=== PATIENT | female | born 1960 | race Asian ===

== ENCOUNTER 2017-08-21 16:04 | Inpatient (IN) | payer OTHER ==
[~2017-08-21] VITALS: Ht 160 cm; Wt 62.1 kg
[2017-08-21 16:07] VITALS: BP 144/115
--- NOTE | 2017-08-21 16:10 | NUR ---
56/F BIBA FROM [facility] FOR CHEST PAIN AND SOB AFTER HYPERVENTILIATING. AWAKE AND AELRT ON ARRIVAL. PT APPEARS ANXIOUS AND SHAKING. AMBULATORY WITH ASSITANCE WITH UNSTABLE GAIT. PT TACHYCARDIA ON MONITOR. DR. VARGAS AT BEDSIDE. EKG AT BEDSIDE. 20G NOTED TO LAC. MEDS REPORTED GIVEN ARE ASPIRIN 325MG PO AND NITRO. BLOOD GLUCOSE 131. HX DIABETES TYPE 1.
--- NOTE | 2017-08-21 16:15 | NUR ---
PT AMB TO RESTROOM WITH ASSISTANCE FOR URINE SAMPLE.
[2017-08-21] MEDS ORDERED: ASPIRIN 81 MG TAB.CHEW PO ONE (16:25)
[2017-08-21] MEDS ORDERED: DIAZEPAM PFS 10 MG/2 ML SYR IVP ONE (16:25)
[2017-08-21] MEDS ORDERED: ONDANSETRON 4 MG/2 ML VIAL IVP ONE (16:25)
[2017-08-21] MEDS ORDERED: FAMOTIDINE 20 MG/2 ML VIAL IVP ONE (16:25)
--- NOTE | 2017-08-21 16:32 | NUR ---
LAB AT BEDSIDE.
--- NOTE | 2017-08-21 16:36 | NUR ---
XR AT BEDSIDE.
[2017-08-21 16:47] LABS: BASOPHILS # (AUTO) 0.2 K/uL (0.00-0.22); EOSINOPHILS # (AUTO) 0.2 K/uL (0-0.4); HEMOGLOBIN 13.9 g/dL (12.0-16.0); LYMPHOCYTES # (AUTO) 1.5 K/uL (2.5-16.5); MEAN CORPUSCULAR HEMOGLOBIN 30 pg (27-31); MEAN CORPUSCULAR HGB CONC 33 g/dL (33-37); MEAN CORPUSCULAR VOLUME 90 fL (80-94); MONOCYTES # (AUTO) 0.3 K/uL (0.8-1.0); NEUTROPHILS # (AUTO) 3.7 K/uL (1.8-7.7); PLATELET COUNT (AUTO) 300 K/uL (140-450); RED BLOOD CELL COUNT(AUTO) 4.64 MIL/uL (4.20-5.40); RED CELL DISTRIBUTION WIDTH 11.9 % (11.6-13.7); WHITE BLOOD COUNT (AUTO) 5.9 K/uL (4.8-10.8)
[2017-08-21 16:49] LABS: APPEARANCE,URINE CLEAR (CLEAR); BILIRUBIN,URINE NEGATIVE (NEGATIVE); BLOOD, URINE NEGATIVE (NEGATIVE); COLOR,URINE YELLOW (YELLOW); LEUKOCYTE ESTERASE ,URINE NEGATIVE (NEGATIVE); NITRITE, URINE NEGATIVE (NEGATIVE); PH,URINE 7.5 (5.0-9.0); UGLUCOSE NEGATIVE (NEGATIVE)
[2017-08-21 17:10] LABS: ANION GAP 14.4 (8-16); CREATININE 0.8 mg/dL (0.6-1.3); POTASSIUM 3.4 mmol/L (3.5-5.1)
[2017-08-21 17:11] LABS: PROTHROMBIN TIME 10.2 secs (10.8-13.4)
[2017-08-21 17:15] LABS: ALBUMIN 4.7 g/dL (3.4-5.0); TOTAL BILIRUBIN 0.5 mg/dL (0.0-1.0)
[2017-08-21 17:26] LABS: D-DIMER < 100 ng/ml (0-400)
--- NOTE | 2017-08-21 18:03 | NUR ---
NIDA MOONEY AT BEDSIDE.
[2017-08-21] MEDS ORDERED: ONDANSETRON 4 MG/2 ML VIAL IVP PRN ×2 (18:05)
[2017-08-21] MEDS ORDERED: MORPHINE SULFATE 2 MG/ML SYR IVP PRN ×2 (18:05)
[2017-08-21] MEDS ORDERED: INSULIN LISPRO SLIDING SCALE 100 UNITS/ML VIAL SUBQ PRN (18:05)
[2017-08-21] MEDS ORDERED: ACETAMINOPHEN 325 MG TAB PO PRN ×2 (18:05)
[2017-08-21] MEDS ORDERED: POTASSIUM CHLORIDE 10 MEQ TABER PO ONE (18:25)
[2017-08-21] MEDS ORDERED: NAPH15SO OP (18:43)
[2017-08-21] MEDS ORDERED: DEXT1DRO4 OP (18:43)
[2017-08-21] MEDS ORDERED: LOTC TP (18:43)
[2017-08-21] MEDS ORDERED: IBUP-2213 PO (18:43)
[2017-08-21] MEDS ORDERED: OMEG-36 PO (18:43)
[2017-08-21] MEDS ORDERED: ALEN70TA52 PO (18:43)
[2017-08-21] MEDS ORDERED: METF500T PO (18:43)
[2017-08-21] MEDS ORDERED: ERGO500028 PO (18:43)
[2017-08-21] MEDS ORDERED: NAPR500T1 PO (18:43)
[2017-08-21] MEDS ORDERED: LID5T TP (18:43)
[2017-08-21] MEDS ORDERED: SYN.075 PO (18:43)
[2017-08-21] MEDS ORDERED: LORA10TA19 PO (18:43)
--- NOTE | 2017-08-21 19:20 | NUR ---
PT ARRIVED VIA GURNEY, AMBULATED TO BED WITH STEADY GAIT. RECEIVED REPORT AT BEDSIDE FROM ER NURSE. PT IS A/OX4, ON ROOM AIR. PT HAS A 20G LEFT AC IV THAT WAS PUT IN PLACE BY EMS, IV INTACT/ASYMPTOMATIC, SALINE FLUSHED. SKIN INTACT. SAFETY PRECAUTIONS IN PLACE. UPDATED BOARD. DISCUSSED PLAN OF CARE WITH PT, PT VERBALIZED UNDERSTANDING. VITAL SIGNS WITHIN NORMAL LIMITS. PT IN STABLE CONDITION, NO SIGNS OF DISTRESS NOTED. BED IN LOW POSITION, CALL LIGHT WITHIN REACH. WILL CONTINUE TO MONITOR.
[2017-08-21 21:00] VITALS: BP 144/82
[2017-08-21] MEDS: BLOOD GLUCOSE MONITORING 1 DEV DEV FS SCH (21:13)
[2017-08-22] VITALS: BP 111/67
[2017-08-22 04:00] VITALS: BP 103/63
[2017-08-22] MEDS: BLOOD GLUCOSE MONITORING 1 DEV DEV FS SCH ×4 (06:46→21:02)
--- NOTE | 2017-08-22 07:15 | NUR ---
ENDORSED PT TO DAY SHIFT NURSE FOR CONTINUITY OF CARE. PT IN STABLE CONDITION.
--- NOTE | 2017-08-22 07:20 | NUR ---
RECEIVED REPORT FROM SHEEP BONER RN. PATIENT IS AAOX4, DENIES ANY CHEST PAIN AT THIS TIME. NO SIGNS AND SYMPTOMS OF ACUTE DISTRESS NOTED AT THIS TIME. PATIENT HAS IV TO LEFT AC 20G. SITE IS CLEAN, DRY, PATENT, AND INTACT. DISCUSSED PLAN OF CARE WITH PATIENT SHE VERBALIZED UNDERSTANDING. BED IN LOWEST POSITION, SIDE RAILS UP X2, CALL LIGHT PLACED WITHIN REACH. WILL CONTINUE TO MONITOR.
[2017-08-22 07:36] LABS: BASOPHILS # (AUTO) 0.1 K/uL (0.00-0.22); BASOPHILS % (AUTO) 1.2 % (0.0-2.0); EOSINOPHILS # (AUTO) 0.2 K/uL (0-0.4); EOSINOPHILS % (AUTO) 4.1 % (0.0-4.0); HEMATOCRIT 38.6 % (36-48); HEMOGLOBIN 13.1 g/dL (12.0-16.0); LYMPHOCYTES # (AUTO) 1.4 K/uL (2.5-16.5); LYMPHOCYTES % (AUTO) 26.8 % (20.5-51.1); MEAN CORPUSCULAR HEMOGLOBIN 31 pg (27-31); MEAN CORPUSCULAR HGB CONC 34 g/dL (33-37); MEAN CORPUSCULAR VOLUME 91 fL (80-94); MONOCYTES # (AUTO) 0.4 K/uL (0.8-1.0); MONOCYTES % (AUTO) 7.6 % (1.7-9.3); NEUTROPHILS # (AUTO) 3.1 K/uL (1.8-7.7); NEUTROPHILS % (AUTO) 60.3 % (42.2-75.2); PLATELET COUNT (AUTO) 273 K/uL (140-450); RED BLOOD CELL COUNT(AUTO) 4.27 MIL/uL (4.20-5.40); RED CELL DISTRIBUTION WIDTH 11.8 % (11.6-13.7); WHITE BLOOD COUNT (AUTO) 5.2 K/uL (4.8-10.8)
[2017-08-22 08:00] VITALS: BP 114/68
[2017-08-22 08:49] LABS: ALBUMIN 3.5 g/dL (3.4-5.0); ANION GAP 11.3 (8-16); CARBON DIOXIDE 27.6 mmol/L (21-32); CREATININE 0.8 mg/dL (0.6-1.3); POTASSIUM 3.9 mmol/L (3.5-5.1); TOTAL BILIRUBIN 0.4 mg/dL (0.0-1.0)
[2017-08-22 09:00] LABS: CREATINE KINASE MB 0.3 ng/mL (0-3.6)
[2017-08-22] MEDS ORDERED: ASPIRIN 81 MG TAB.CHEW PO SCH (09:00)
--- NOTE | 2017-08-22 09:10 | NUR ---
DR RADFORD AT THE BEDSIDE TALKING TO THE PATIENT. STATED THAT HE WILL ORDER A TSH, AND HAVE DR. CARTY COME CONSULT WITH THE PATIENT. WILL CONTINUE TO MONITOR.
--- NOTE | 2017-08-22 09:19 | NUR ---
PATIENT HAS BEEN SCREENED AND CATEGORIZED MODERATE NUTRITION RISK. PATIENT WILL BE SEEN WITHIN 3-5 DAYS OF ADMISSION. 08/24/17-08/26/[address]
[2017-08-22] MEDS: ASPIRIN 81 MG TAB.CHEW PO SCH (09:35)
[2017-08-22] MEDS ORDERED: LORazepam 0.5 MG TAB PO PRN (09:40)
[2017-08-22] MEDS: ENOXAPARIN 40 MG/0.4 ML SYR SUBQ SCH (09:40)
--- NOTE | 2017-08-22 10:21 | NUR ---
FAXED INITIAL REVIEW TO [facility] [phone] PHONE MAGNUS [phone]
[2017-08-22 12:00] VITALS: BP 109/64
[2017-08-22 16:00] VITALS: BP 127/80
[2017-08-22 17:09] LABS: CREATINE KINASE MB 0.2 ng/mL (0-3.6)
--- NOTE | 2017-08-22 19:15 | NUR ---
ENDORSED PATIENT TO DOUBLE HEAD MACHINE OPERATOR RN FOR CONTINUITY OF CARE. PATIENT IN STABLE CONDITION.
--- NOTE | 2017-08-22 19:20 | NUR ---
RECEIVED PT AWAKE ON BED, DR Randall CARTY AT BEDSIDE TALKING TO PT, DR CARTY PLANS TO DO STRESS TEST TOMORROW AT 1200, PT DENIES ANY CHEST PAIN AT THIS TIME, NO SOB NOTED, CALL LIGHT WITHIN REACH.
--- NOTE | 2017-08-22 19:40 | NUR ---
PER DR Foster CARTY SHE WILL BE NPO EXCEPT MEDS AFTER BREAKFAST TOMORROW FOR STRESS TEST AT 1200, PT MADE AWARE, ALL NEEDS ATTENDED.
[2017-08-22 20:00] VITALS: BP 99/61
--- NOTE | 2017-08-22 20:30 | NUR ---
BLOOD SUGAR CHECKED WITH 120 RESULT, SNACK PROVIDED.
[2017-08-23] VITALS: BP 95/60
--- NOTE | 2017-08-23 | NUR ---
PT SLEEPING, EASILY AROUSABLE, VITAL SIGNS STABLE, DENIES ANY PAIN AND NO SOB NOTED, OFFERED SNACK BUT PT NOT HUNGRY, CONTINUE TO MONITOR CLOSELY.
[2017-08-23 04:00] VITALS: BP 101/50
--- NOTE | 2017-08-23 04:00 | NUR ---
PT SLEEPING, AROUSABLE TO TOUCH, VITAL SIGNS STABLE, FLACC-0, MONITORED CLOSELY.
--- NOTE | 2017-08-23 06:05 | NUR ---
PT AWAKE, DENIES ANY PAIN OR SOB, BLOOD SUGAR CHECKED WITH 116, INSTRUCTED NPO AFTER BREAKFAST, VERBALIZED UNDERSTANDING, MONITORED CLOSELY.
[2017-08-23] MEDS: BLOOD GLUCOSE MONITORING 1 DEV DEV FS SCH ×2 (06:45→11:41)
--- NOTE | 2017-08-23 07:20 | NUR ---
PT AWAKE, NO SIGNS OF DISTRESS, REPORT GIVEN TO IVAN ODONNELL FOR CONTINUITY OF CARE.
--- NOTE | 2017-08-23 07:21 | NUR ---
RECEIVED REPORT FROM NIGHT RN, PT AWAKE IN BED ON RA, PT DENIES PAIN, A/OX4, NO S/S OF ACUTE DISTRESS, PLAN OF CARE DISCUSSED WITH PT, PT VERBALIZED UNDERSTANDING, IV PATENT AND INTACT, SAFETY PRECAUTIONS TAKEN, CALL LIGHT WITHIN REACH WILL CONT TO [id number].
[2017-08-23 07:51] LABS: BASOPHILS # (AUTO) 0.1 K/uL (0.00-0.22); BASOPHILS % (AUTO) 1.9 % (0.0-2.0); EOSINOPHILS # (AUTO) 0.2 K/uL (0-0.4); EOSINOPHILS % (AUTO) 4.3 % (0.0-4.0); HEMATOCRIT 38.1 % (36-48); HEMOGLOBIN 12.8 g/dL (12.0-16.0); LYMPHOCYTES # (AUTO) 1.4 K/uL (2.5-16.5); LYMPHOCYTES % (AUTO) 29.8 % (20.5-51.1); MEAN CORPUSCULAR HEMOGLOBIN 31 pg (27-31); MEAN CORPUSCULAR HGB CONC 34 g/dL (33-37); MEAN CORPUSCULAR VOLUME 91 fL (80-94); MONOCYTES # (AUTO) 0.4 K/uL (0.8-1.0); MONOCYTES % (AUTO) 8.9 % (1.7-9.3); NEUTROPHILS # (AUTO) 2.6 K/uL (1.8-7.7); NEUTROPHILS % (AUTO) 55.1 % (42.2-75.2); PLATELET COUNT (AUTO) 266 K/uL (140-450); RED BLOOD CELL COUNT(AUTO) 4.18 MIL/uL (4.20-5.40); RED CELL DISTRIBUTION WIDTH 11.9 % (11.6-13.7); WHITE BLOOD COUNT (AUTO) 4.7 K/uL (4.8-10.8)
[2017-08-23 08:00] VITALS: BP 119/61
[2017-08-23] MEDS: ASPIRIN 81 MG TAB.CHEW PO SCH (08:24)
[2017-08-23] MEDS: ENOXAPARIN 40 MG/0.4 ML SYR SUBQ SCH (08:31)
--- NOTE | 2017-08-23 08:32 | NUR ---
DUE MEDICATIONS GIVEN WITH EDUCATION, PT VERBALIZED UNDERSTANDING, PT TOLERATED MEDS WELL, PT EDUCATED TO HAVE NOTHING BY MOUTH AFTER MEDS FOR STRESS TEST, IV PATENT AND INTACT, WILL CONT TO MONITOR.
[2017-08-23] MEDS ORDERED: ESCITALOPRAM 20 MG TAB PO SCH (09:00)
--- NOTE | 2017-08-23 11:02 | NUR ---
ADVISED DR FLORES THAT PT IS TOO WEAK AND IN TOO MUCH PAIN FOR STRESS TEST, WILL CONT TO MONITOR .
--- NOTE | 2017-08-23 11:13 | NUR ---
PT STATES SHE IS TOO WEAK AND HAS TOO MUCH PAIN IN KNEES TO PERFORM STRESS TEST, PT WAS ADVISED TO FOLLOW UP WITH PRIMARY DR IN ONE WEEK, PT VERBALIZED UNDERSTANDING.
[2017-08-23 11:25] VITALS: BP 119/61
[2017-08-23 11:42] VITALS: BP 124/68
--- NOTE | 2017-08-23 12:18 | NUR ---
PT AWAKE IN BED ON RA, PT DENIES PAIN, NO S/S OF ACUTE DISTRESS, PT AWAITING DISCHARGE, WILL CONT TO MONITOR.
--- NOTE | 2017-08-23 14:31 | NUR ---
CM NOTE FAXED CONCURRENT REVIEW TO [facility] [phone] PHONE MAGNUS [phone]
[2017-08-23] MEDS ORDERED: ESCI10TA PO (14:42)
[2017-08-23] MEDS ORDERED: ASPI-1677 PO (14:44)
[2017-08-23] MEDS ORDERED: ATI.5 PO (14:44)
--- NOTE | 2017-08-23 15:03 | NUR ---
PT READY FOR DISCHARGE, ALL PAPERWORK SIGNED, IV TAKEN OUT TIP INTACT, TELE BOX REMOVED, PT AMBULATE TO LOBBY WITH NO S/S OF ACUTE DISTRESS, DAUGHTER PICKING UP PT, PT IN STABLE CONDITION.
== END 2017-08-23 15:05 | disposition home or self-care (01) | DRG 203 ==
LOC: MED 16:04 → MTU 18:11
PROVIDERS: ADMIT Hospitalist; ATTEND Hospitalist
DX: M94.0 Chondrocostal junction syndrome [Tietze] (principal); I24.9 Acute ischemic heart disease, unspecified; E03.9 Hypothyroidism, unspecified; Z98.891 History of uterine scar from previous surgery; E11.9 Type 2 diabetes mellitus without complications; F41.0 Panic disorder [episodic paroxysmal anxiety]; E87.6 Hypokalemia; M81.0 Age-related osteoporosis without current pathological fracture; M17.11 Unilateral primary osteoarthritis, right knee; G89.29 Other chronic pain; M54.5 Low back pain; Z88.8 Allergy status to other drugs, medicaments and biological substances
CPT/HCPCS: 36415; 71010; 80053; 81003; 81025; 82550; 82553; 82948; 83690; 84443; 84484; 85025; 85379; 85610; 85730; 87081; 93005; 96374; 96375; 99285; J1650; J1815; J2405; J3360; J3490

== ENCOUNTER 2018-12-20 22:06 | Emergency (ER) | payer OTHER ==
[~2018-12-20] VITALS: Ht 154.9 cm; Wt 61.2 kg
[~2018-12-20 22:06] MED LIST: ALEN70TA9 PO; ASPI-1677 PO; ATI.5 PO; DEXT1DRO4 OP; ERGO500028 PO; ESCI10TA PO; IBUP-2213 PO; LID5T TP; LORA10TA19 PO; LOTC TP; METF500T PO; NAPH15SO OP; NAPR-54 PO; OMEG-36 PO; SYN.075 PO
[2018-12-20 22:17] VITALS: BP 154/93
--- NOTE | 2018-12-20 22:19 | NUR ---
PT TRIAGED AND SENT TO ER LOBBY, URINE OBTAINED AT THIS TIME.
--- NOTE | 2018-12-20 23:36 | NUR ---
pt ambulated to er bed 03
--- NOTE | 2018-12-21 00:48 | NUR ---
PT BIB SELF C/O COUGH X 1 MONTH. PT STATES COUGH IS DRY AND PERSISTENT. RR EVEN AND UNLABORED, BL BS CLEAR THROUGH OUT, PT IN NO RESPIRATORY DISTRESS. PT SITTING IN BED, AWAKE.
[2018-12-21 02:01] VITALS: BP 140/88
--- NOTE | 2018-12-21 02:01 | NUR ---
Patient discharged with v/s stable. Written and verbal after care instructions given and explained. Patient alert, oriented and verbalized understanding of instructions. Ambulatory with steady gait. All questions addressed prior to discharge. ID band removed. Patient advised to follow up with PMD. Rx of azithromycin given. Patient educated on indication of medication including possible reaction and side effects. Opportunity to ask questions provided and answered.
== END 2018-12-21 02:01 | disposition home or self-care (01) ==
LOC: MED 22:06
DX: J40 Bronchitis, not specified as acute or chronic (principal); E10.9 Type 1 diabetes mellitus without complications; Z79.82 Long term (current) use of aspirin; Z79.84 Long term (current) use of oral hypoglycemic drugs; Z79.899 Other long term (current) drug therapy
CPT/HCPCS: 71046; 81002; 87804; 99284; Q0092

== ENCOUNTER 2018-12-22 11:35 | Emergency (ER) | payer OTHER ==
[~2018-12-22] VITALS: Ht 154.9 cm; Wt 62.1 kg
[2018-12-22 12:04] VITALS: BP 126/78
--- NOTE | 2018-12-22 12:10 | NUR ---
PT SENT TO LOBBY TO WAIT FOR AVAIABLE BED.
--- NOTE | 2018-12-22 16:21 | NUR ---
PT AMBULATED TO BED 11.
--- NOTE | 2018-12-22 16:32 | NUR ---
PATIENT PRESENTS TO ED WITH requesting antitussive, seen yesterday in our er ----rx z hugo to f/u with pmd DENIES N/V/D; SKIN IS PINK/WARM/DRY; AAOX4 WITH EVEN AND STEADY GAIT; LUNGS CLEAR BL; HR EVEN AND REGULAR; PATIENT STATES PAIN OF 0/10 AT THIS TIME; VSS; PATIENT POSITIONED FOR COMFORT; HOB ELEVATED; BEDRAILS UP X2; BED DOWN. ER MD MADE AWARE OF PT STATUS.
[2018-12-22] MEDS ORDERED: MECLIZINE 25 MG TAB PO ONE (16:40)
[2018-12-22] MEDS ORDERED: cefTRIAXone 1,000 MG in LIDOCAINE 1% ***ER ONLY *** 2.1 ML IM ONE (16:40)
[2018-12-22] MEDS ORDERED: DEXAMETHASONE 10 MG/ML VIAL IM ONE (16:40)
[2018-12-22] MEDS ORDERED: hydrOXYzine HCL 25 MG TAB PO ONE (16:40)
[2018-12-22] MEDS ORDERED: FAMOTIDINE 20 MG TAB PO ONE (16:40)
[2018-12-22] MEDS ORDERED: cefTRIAXone 1,000 MG VIAL ONE (16:54)
[2018-12-22 19:05] VITALS: BP 115/69
--- NOTE | 2018-12-22 19:05 | NUR ---
Patient discharged with v/s stable. Written and verbal after care instructions given and explained. Patient alert, oriented and verbalized understanding of instructions. Ambulatory with steady gait. All questions addressed prior to discharge. ID band removed. Patient advised to follow up with PMD. Rx of PROMETHAZINE/VISTARIL/PRELONE given. Patient educated on indication of medication including possible reaction and side effects. Opportunity to ask questions provided and answered.
== END 2018-12-22 19:05 | disposition home or self-care (01) ==
LOC: MED 11:35
DX: R05 Cough (principal); K21.9 Gastro-esophageal reflux disease without esophagitis; E11.9 Type 2 diabetes mellitus without complications; F31.9 Bipolar disorder, unspecified; E03.9 Hypothyroidism, unspecified; Z79.82 Long term (current) use of aspirin; Z79.84 Long term (current) use of oral hypoglycemic drugs; Z79.1 Long term (current) use of non-steroidal anti-inflammatories (NSAID); Z79.899 Other long term (current) drug therapy
CPT/HCPCS: 96372; 99283; J0696; J1100; J2001; J8597

== ENCOUNTER 2021-07-17 10:53 | Emergency (ER) | payer OTHER ==
[~2021-07-17] VITALS: Ht 162.6 cm; Wt 59.4 kg
[~2021-07-17 10:53] MED LIST changes: -ALEN70TA9 PO; -ASPI-1677 PO; +ASPI-1749 PO; +FOS70 PO
[2021-07-17 11:09] VITALS: BP 152/92
--- NOTE | 2021-07-17 11:16 | NUR ---
PT W/C ASSISTED TO ER BED 8
--- NOTE | 2021-07-17 11:25 | NUR ---
60 y/o female from home c/o dizziness with nausea/vomiting x 2 wks s/p fall. Pt states LOC with fall 2 wks ago and scheduled for MRI but has not been completed. Pt presents fatigue, arousable to voice. Vomiting upon arrival. Equal quality manager strength, no facial asymmetry noted. Awake and dowsy. Placed on bedside monitor. Bed locked and in lowest position. VSS medhx: denies allergies: denies
--- NOTE | 2021-07-17 11:39 | NUR ---
IV 20 SANDRA STARTED ON LEFT AC.
--- NOTE | 2021-07-17 11:47 | NUR ---
SHARRI SWAB WAS DONE AND TAKEN TO THE LAB.
[2021-07-17 11:48] LABS: BASOPHILS % (AUTO) 0.4 % (0.0-2.0); EOSINOPHILS % (AUTO) 0.5 % (0.0-4.0); HEMATOCRIT 38.7 % (36-48); HEMOGLOBIN 13.2 g/dL (12.0-16.0); LYMPHOCYTES # (AUTO) 0.7 K/uL (2.5-16.5); LYMPHOCYTES % (AUTO) 13.7 % (20.5-51.1); MEAN CORPUSCULAR HEMOGLOBIN 31 pg (27-31); MEAN CORPUSCULAR HGB CONC 34 g/dL (33-37); MEAN CORPUSCULAR VOLUME 91.9 fL (80-94); MONOCYTES # (AUTO) 0.2 K/uL (0.8-1.0); MONOCYTES % (AUTO) 3.9 % (1.7-9.3); NEUTROPHILS # (AUTO) 4.4 K/uL (1.8-7.7); NEUTROPHILS % (AUTO) 81.5 % (42.2-75.2); PLATELET COUNT (AUTO) 298 K/uL (140-450); RED BLOOD CELL COUNT(AUTO) 4.21 MIL/uL (4.20-5.40); RED CELL DISTRIBUTION WIDTH 13.3 % (11.6-13.7); WHITE BLOOD COUNT (AUTO) 5.3 K/uL (4.8-10.8)
[2021-07-17 12:05] LABS: ALBUMIN 4.3 g/dL (3.4-5.0); ANION GAP 13.6 (8-16); CARBON DIOXIDE 27.7 mmol/L (21-32); CREATININE 0.7 mg/dL (0.6-1.3); POTASSIUM 3.3 mmol/L (3.5-5.1); TOTAL BILIRUBIN 0.6 mg/dL (0.0-1.0)
--- NOTE | 2021-07-17 12:23 | NUR ---
TO CT SCAN VIA RHECTOR.
--- NOTE | 2021-07-17 12:23 | NUR ---
Pt taken to CT via nida
--- NOTE | 2021-07-17 12:51 | NUR ---
BACK FROM CT SCAN.
--- NOTE | 2021-07-17 13:10 | NUR ---
URINE COLLECTED FOR UA AND TAKEN TOMTHE LAB.
[2021-07-17 13:21] LABS: APPEARANCE,URINE CLEAR (CLEAR); BILIRUBIN,URINE NEGATIVE (NEGATIVE); BLOOD, URINE NEGATIVE (NEGATIVE); COLOR,URINE YELLOW (YELLOW); LEUKOCYTE ESTERASE ,URINE NEGATIVE (NEGATIVE); NITRITE, URINE NEGATIVE (NEGATIVE); PH,URINE >=9.0 (5.0-9.0); UGLUCOSE NEGATIVE (NEGATIVE)
--- NOTE | 2021-07-17 13:26 | NUR ---
DR WILSON AT BEDSIDE.
[2021-07-17] MEDS ORDERED: MECLIZINE 25 MG TAB PO ONE (13:30)
--- NOTE | 2021-07-17 14:12 | NUR ---
Report and continuation of care received from IVAN Tripp
--- NOTE | 2021-07-17 14:12 | NUR ---
Report given to IVAN Guerin. Transfer of care at this time
--- NOTE | 2021-07-17 14:20 | NUR ---
Report given to IVAN Sharif at [facility]. Requests we call when pt leaves facility
[2021-07-17 14:40] VITALS: BP 133/78
--- NOTE | 2021-07-17 14:40 | NUR ---
[facility] at bedside for transfer
--- NOTE | 2021-07-17 14:45 | NUR ---
Patient to be transferred to [facility] ER. Is being transferred due to higher level of care. Receiving facility has accepting physician and available space. ER physician has signed transfer form. Patient or responsible alliance party has agreed to transfer and signed form. Patient belongings inventoried and will be sent with patient. Copy of nursing notes, lab reports, EKG, Physicians Orders and X-rays to be sent with patient. Report called to IVAN Sharif at receiving facility. [facility] ambulance service has been called for transfer. ETA is 15-20 min
== END 2021-07-17 14:45 | disposition home or self-care (01) ==
LOC: MED 10:53
DX: R42 Dizziness and giddiness (principal); Z20.822 Contact with and (suspected) exposure to COVID-19; I10 Essential (primary) hypertension; Z86.73 Personal history of transient ischemic attack (TIA), and cerebral infarction without residual deficits
CPT/HCPCS: 36415; 70450; 70496; 70498; 80053; 81003; 84443; 84484; 85025; 87426; 93005; 99291; J8597; Q9967

== ENCOUNTER 2022-12-23 08:54 | Emergency (ER) | payer OTHER ==
[~2022-12-23] VITALS: Ht 162.6 cm; Wt 59.0 kg
[~2022-12-23 08:54] MED LIST changes: +METF-346 PO; -METF500T PO
[2022-12-23 09:08] VITALS: BP 153/89
--- NOTE | 2022-12-23 09:46 | NUR ---
AMB TO BED 1
--- NOTE | 2022-12-23 10:14 | NUR ---
62 YO FEMALE BIB FROM HOME BY C/O DIZZINESS UPON WAKING UP. STATED SHE VOMITED 3X THIS MORNING. NO EMESIS NOTED AT BEDSIDE, DENIES BLOOD IN EMESIS, DENIES ABD PAIN AND DIARRHEA. STATES NAUSEA GETS BETTER WHEN EYES ARE CLOSED. PATIENT ON MONITOR, NKA, DM1
--- NOTE | 2022-12-23 10:26 | NUR ---
DR VARGAS AT BEDSIDE FOR EVAL
[2022-12-23] MEDS ORDERED: ONDANSETRON 4 MG/2 ML VIAL IVP ONE (10:35)
[2022-12-23] MEDS ORDERED: NACL 0.9% 1,000 ML IV ONE (10:35)
[2022-12-23 11:16] LABS: BASOPHILS % (AUTO) 0.3 % (0.0-2.0); EOSINOPHILS # (AUTO) 0.1 K/uL (0-0.4); EOSINOPHILS % (AUTO) 1.3 % (0.0-4.0); HEMATOCRIT 37.2 % (36-48); HEMOGLOBIN 12.5 g/dL (12.0-16.0); LYMPHOCYTES % (AUTO) 13.3 % (20.5-51.1); MEAN CORPUSCULAR HEMOGLOBIN 31 pg (27-31); MEAN CORPUSCULAR HGB CONC 34 g/dL (33-37); MEAN CORPUSCULAR VOLUME 91.5 fL (80-94); MONOCYTES # (AUTO) 0.4 K/uL (0.8-1.0); MONOCYTES % (AUTO) 5.6 % (1.7-9.3); NEUTROPHILS # (AUTO) 5.7 K/uL (1.8-7.7); NEUTROPHILS % (AUTO) 79.5 % (42.2-75.2); PLATELET COUNT (AUTO) 232 K/uL (140-450); RED BLOOD CELL COUNT(AUTO) 4.06 MIL/uL (4.20-5.40); RED CELL DISTRIBUTION WIDTH 12.9 % (11.6-13.7); WHITE BLOOD COUNT (AUTO) 7.2 K/uL (4.8-10.8)
[2022-12-23 11:26] VITALS: BP 152/68
[2022-12-23 11:43] LABS: ALBUMIN 4.1 g/dL (3.4-5.0); ANION GAP 13.7 (8-16); ASPARTATE AMINOTRANSFERASE 19 U/L (15-37); CHLORIDE 105 mmol/L (98-107); CREATININE 0.7 mg/dL (0.6-1.3); GFR ARICAN-AMERICAN 110 mL/min (>90); GLUCOSE 121 mg/dL (74-106); POTASSIUM 3.7 mmol/L (3.5-5.1); SODIUM SERUM 143 mmol/L (136-145); THYROID STIMULATING HORMONE 2.32 uIU/mL (0.34-3.74); TOTAL BILIRUBIN 0.3 mg/dL (0.0-1.0); UREA NITROGEN, BLOOD 17 mg/dL (7-18)
--- NOTE | 2022-12-23 12:00 | NUR ---
AMBULATED TO BATHROOM WITH ASSISTANCE
[2022-12-23] MEDS ORDERED: MECLIZINE 25 MG TAB PO ONE (12:25)
[2022-12-23] MEDS ORDERED: LOPE-289 PO (12:27)
[2022-12-23] MEDS ORDERED: ONDA-188 PO (12:27)
--- NOTE | 2022-12-23 12:50 | NUR ---
Patient discharged with v/s stable. Written and verbal after care instructions given and explained. Patient alert, oriented and verbalized understanding of instructions. Ambulatory with steady gait. All questions addressed prior to discharge. ID band removed. Patient advised to follow up with PMD. Rx of lOPERAMIDE, ZOFRAN given. Patient educated on indication of medication including possible reaction and side effects. Opportunity to ask questions provided and answered.
== END 2022-12-23 12:45 | disposition home or self-care (01) ==
LOC: MED 08:54
DX: R42 Dizziness and giddiness (principal); R19.7 Diarrhea, unspecified; R11.10 Vomiting, unspecified; E10.9 Type 1 diabetes mellitus without complications; I10 Essential (primary) hypertension; Z86.39 Personal history of other endocrine, nutritional and metabolic disease; Z79.899 Other long term (current) drug therapy; Z79.82 Long term (current) use of aspirin; Z79.1 Long term (current) use of non-steroidal anti-inflammatories (NSAID)
CPT/HCPCS: 36415; 80053; 84443; 84484; 85025; 93005; 96361; 96374; 99284; J2405; J7030; J8597

== ENCOUNTER 2023-03-01 15:23 | Emergency (ER) | payer OTHER ==
[~2023-03-01] VITALS: Ht 154.9 cm; Wt 59.9 kg
[~2023-03-01 15:23] MED LIST changes: +LOPE-289 PO; +ONDA-188 PO
[2023-03-01 16:02] VITALS: BP 150/80; PULSE 81; RESP 18; TEMP 98; O2SAT 99
--- NOTE | 2023-03-01 17:03 | NUR ---
PT SWABBED FOR COVID AND FLU, SPECIMEN TAKEN TO LAB
[2023-03-01] MEDS ORDERED: SUD30 PO (17:33)
[2023-03-01] MEDS ORDERED: PROM118S5 PO (17:33)
[2023-03-01] MEDS ORDERED: NIRM1TAB PO (17:33)
[2023-03-01] MEDS ORDERED: ONDA-188 PO (17:33)
[2023-03-01 17:43] VITALS: BP 150/80; PULSE 81; RESP 18; TEMP 98; O2SAT 99
--- NOTE | 2023-03-01 17:43 | NUR ---
Patient discharged with v/s stable. Written and verbal after care instructions given and explained. Patient alert, oriented and verbalized understanding of instructions. Ambulatory with steady gait. All questions addressed prior to discharge. ID band removed. Patient advised to follow up with PMD. Rx of PAXLOVID, ZOFRAN, PROMETHAZINE, SUDAFED (SENT) given. Patient educated on indication of medication including possible reaction and side effects. Opportunity to ask questions provided and answered. COPY OF LABS GIVEN
== END 2023-03-01 17:43 | disposition home or self-care (01) ==
LOC: MED 15:23
DX: U07.1 COVID-19 (principal); R03.0 Elevated blood-pressure reading, without diagnosis of hypertension; E10.9 Type 1 diabetes mellitus without complications; I10 Essential (primary) hypertension; Z86.39 Personal history of other endocrine, nutritional and metabolic disease; Z79.899 Other long term (current) drug therapy; Z79.82 Long term (current) use of aspirin
CPT/HCPCS: 99283

== ENCOUNTER 2023-05-24 09:33 | Day surgery (SDC) | payer OTHER ==
[~2023-05-24] VITALS: Ht 149.9 cm; Wt 63.0 kg
[~2023-05-24 09:33] MED LIST changes: +NIRM1TAB PO; +PROM118S5 PO; +SUD30 PO
[2023-05-24] MEDS ORDERED: MIDAZOLAM 5 MG/5 ML VIAL ONE (10:49)
[2023-05-24] MEDS ORDERED: diphenhydrAMINE 50 MG/ML VIAL ONE (10:49)
[2023-05-24] MEDS ORDERED: LIDOCAINE 2% 100 MG/5 ML UJET TP ONE (10:49)
[2023-05-24] MEDS ORDERED: fentaNYL citrate 0.05 MG/ML VIAL ONE (10:49)
[2023-05-24] MEDS ORDERED: fentaNYL citrate 0.05 MG/ML VIAL IVP ONE (11:30)
[2023-05-24] MEDS ORDERED: MIDAZOLAM 2 MG/2 ML VIAL IVP ONE (11:30)
== END 2023-05-24 12:30 | disposition home or self-care (01) ==
LOC: MDS 09:33 → MMU 09:35 → MDS 12:30
PROVIDERS: ATTEND Internal Medicine Gastroenterology
DX: K62.5 Hemorrhage of anus and rectum (principal); K63.5 Polyp of colon; K64.8 Other hemorrhoids
CPT/HCPCS: 45385; J2250; J3010; 88305; J1200

== ENCOUNTER 2023-08-23 20:44 | Emergency (ER) | payer OTHER ==
[~2023-08-23] VITALS: Ht 160 cm; Wt 64.0 kg
[2023-08-23 21:00] VITALS: BP 136/81; PULSE 81; RESP 18; TEMP 97.4; O2SAT 99
[2023-08-23 21:17] VITALS: BP 137/80; PULSE 76; RESP 15; TEMP 98.3; O2SAT 98
== END 2023-08-23 23:55 | disposition left against medical advice (07) ==
LOC: MED 20:44
DX: R11.2 Nausea with vomiting, unspecified (principal); J00 Acute nasopharyngitis [common cold]; R42 Dizziness and giddiness; R68.83 Chills (without fever); R61 Generalized hyperhidrosis; Z53.21 Procedure and treatment not carried out due to patient leaving prior to being seen by health care provider
CPT/HCPCS: 99281